=== PATIENT | male | born 1970 | race Caucasian/White ===

== ENCOUNTER 2021-01-26 02:58 | Emergency (ER) | payer SELFPAY ==
[2021-01-26 03:00] VITALS: BP 133/91; PULSE 93; RESP 18; TEMP 36.9; O2SAT 98; BMI 20.9
--- NOTE | 2021-01-26 03:44 | ED_ITS ---
HPI - Extremity Problem General Chief complaint: Extremity Problem,Nontraumatic Stated complaint: Right leg pain Time Seen by Provider: 01/26/21 03:10 Source: patient Mode of arrival: Ambulatory Limitations: no limitations History of Present Illness HPI Narrative: Patient is a 50-year-old male with recent IVDA use his and recent spinal abscess with probable CVA presenting today with increasing right leg weakness numbness and tingling. He says over last 2 days he has actually noticed some increasing weakness and feeling like his he has footdrop. He says that he had footdrop and his whole right side was paralyzed when he had the spinal abscess. He is unsure if he actually had a stroke. He has been doing we ll until a few days ago. He denies any injury to his back. He describes pain coming from his buttock down to his foot as sharp and shooting. He admits to using heroin today it helped a lot with the pain. He was previously in [place] where he was treated and has been in [place] for about the last 3 weeks. He denies any other history. MD Complaint: extremity pain Related Data Previous Rx's Medication Instructions Recorded sulfamethoxazole-trimethoprim 1 tab PO BID 7 Days #14 tab 01/26/21 [Bactrim DS] Allergies Allergy/AdvReac Type Severity Reaction Status Date / Time acetaminophen [From Tylenol] Allergy Verified 01/26/21 03:16 Review of Systems Review of Systems ROS Unobtainable: All systems reviewed & are unremarkable except as noted in HPI and below Constitutional Constitutional: Denies chills, Denies fever(s), Denies lethargy and Reports weakness ENT Ears, Nose, Mouth, and Throat: Denies vertigo and Denies dizziness Cardiovascular Cardiovascular: Denies chest pain, Denies irregular heart rhythm, Denies lightheadedness, Denies palpitations, Denies dyspnea, Denies dyspnea on exertion and Denies orthopnea Respiratory Respiratory: Denies cough, Denies dyspnea, Denies dyspnea on exertion and Denies wheezing Musculoskeletal Musculoskeletal: Reports as per HPI, Reports numbness and Reports tingling Integumentary/Breasts Skin/Breast: Denies pruritus, Denies erythema, Denies rash and Denies wounds Neurologic Neurologic: Denies confusion, Denies vertigo, Denies dizziness, Reports lack of coordination, Reports numbness, Reports tingling and Reports weakness Psychiatric Psychiatric: Denies confusion Endocrine Endocrine: Denies palpitations Allergic/Immunologic Allergic/Immunologic: Denies wheezing Patient History Social History Smoking Status: Current every day smoker Smoking Status: Current every day smoker tobacco type: cigarettes Substance Use Type: former substance user and marijuana Exam Initial Vital Signs Initial Vital Signs: Vital Signs Temperature 98.4 F 01/26/21 03:00 Pulse Rate 93 H 01/26/21 03:00 Respiratory Rate 18 01/26/21 03:00 Blood Pressure 133/91 H 01/26/21 03:00 Pulse Oximetry 98 01/26/21 03:00 GENERAL: Alert 50-year-old male does shovel and in no acute distress. HEENT: Head atraumatic,EOMI, pupils reactive, face symmetric, moist mucous membranes CARDIOVASCULAR: Regular rate and rhythm without murmurs, rubs or gallops. RESPIRATORY: Breath sounds equal bilaterally, no wheezes rales or rhonchi. ABDOMEN: Soft, nontender. Normoactive bowel sounds all 4 quadrants. No guarding or rebound. BACK: No vertebral tenderness or step-off some mild right lumbar pain EXTREMITIES: Normal range of motion, no clubbing or edema. Neurovascularly intact NEUROLOGICAL: Alert and oriented x4.Normal gait and speech. Cranial nerves II t hrough XII grossly intact. Good [id number], good [id number], strength equal bilaterally, no dysarthria or aphasia, sensation in tact to soft touch bilaterally, no visual changes, no facial droop SKIN: Patient is noted to have this on Rodriges posterior wrist area there is mild fluctuation no drainage another abscess on his right forearm with fluctuation. Course Orders Ordered: ED Orders 01/26/21 03:45 CT lumbar spine w con Stat CT thoracic spine w con Stat 01/26/21 03:47 Urinalysis and Microscopic Stat 01/26/21 03:48 CT head/brain wo con Stat 01/26/21 03:50 C-Reactive Protein Quant Stat Complete Blood Count AUTO DIFF Stat Comprehensive Metabolic Panel Stat Erythrocyte Sedimentation Rate Stat Procalcitonin Stat 01/26/21 04:05 Blood Culture Stat Discontinued Medications Ketorolac Tromethamine (Ketorolac 30 Mg/Ml Vial) 30 mg IV NOW ONE Stop: 01/26/21 05:37 Last Admin: 01/26/21 05:46 Dose: 30 mg Documented by: Vital Signs Vital signs: Vital Signs - 8 hr 01/26/21 03:00 Temperature 98.4 F Pulse Rate 93 H Respiratory Rate 18 Blood Pressure 133/91 H Pulse Oximetry 98 MDM - Extremity (Nontraumatic) Lab Data Result diagrams: 01/26/21 03:50 01/26/21 03:50 Labs: Lab Results 01/26/21 01/26/21 Range/Units 03:50 03:50 WBC 9.3 (4.5-11.0) X10^3/uL RBC 4.50 (4.5-5.9) X10^6/uL Hgb 13.1 L (13.5-17.5) g/dL Hct 38.5 L (41-53) % MCV 85.4 (80-100) fL MCH 29.2 (26-34) PG MCHC 34.2 (30-36) % RDW 15.1 H (11.6-14.8) % Plt Count 363 (150-400) X10^3/uL Neut % (Auto) 59.6 (50-75) % Lymph % (Auto) 22.8 L (25-40) % [place] % (Auto) 10.2 (3-14) % Eos % (Auto) 4.2 H (2-4) % Baso % (Auto) 3.2 H (0-2) % Neut # (Auto) 5600 (7782-9166) /uL Lymph # (Auto) 2100 (3535-3273) /uL [place] # (Auto) 1000 H (0-900) /uL Eos # (Auto) 400 (0-450) /uL Baso # (Auto) 300 H (0-100) /uL ESR 12 (0-15) MM/HR Sodium 136 L (137-145) mmol/L Potassium 4.0 (3.4-5.1) mmol/L Chloride 104 (98-107) mmol/L Carbon Dioxide 28 (22-32) mmol/L BUN 15 (9-20) mg/dL Creatinine 0.73 (0.66-1.25) mg/dL Estimated GFR > 60.0 (>60) mL/min BUN/Creatinine Ratio 20.5 (6-22) Glucose 120 H (70-100) mg/dL Calcium 9.5 (8.4-10.2) mg/dL Total Bilirubin 0.6 (0.2-1.3) mg/dL AST 55 (17-59) IU/L ALT 53 H (<50) IU/L Alkaline Phosphatase 96 (38-126) U/L C-Reactive Protein 0.9 (<1.0) mg/dL Total Protein 7.3 (6.3-8.2) g/dL Albumin 3.8 (3.5-5.0) g/dL Globulin 3.5 (1.7-4.1) g/dL Albumin/Globulin Ratio 1.1 (1.0-2.8) Procalcitonin 0.10 (<0.5) ng/mL Imaging Data CT scan - head: Radiologist's Impression: Preliminary report no acute intracranial pathology CT thoracic: Radiologist's Impression: Preliminary report negative for abscess. Mild spondylitic changes in the thoracic spine. CT lumbar: Radiologist's Impression: Negative for abscesses or suspicious bony lesion. Multilevel degenerative disease with facet arthropathy and thickened ligamentum flavum resulting in very will increase of spinal canal stenosis and foraminal stenosis most severe at L3 or L4-L5-L5-S1 MDM Narrative Medical decision making narrative: The patient overall appears well and is a febrile. Her records have finally been received reviewed from [facility] and the [facility] in [facility]. It is found that he has had cervical abscesses is March 2020 and presented with right leg weakness. He had no upper extremity pain or weakness. He initially w as admitted for MRI and further evaluation is however it was found that he had cervical abscesses and was placed on IV antibiotics. He also has a history of sciatic issues however because he has relapse on to IV drug he is concerned for recurrent abscesses. Unfortunately records were received after imaging was ordered he had is CTs of neck and lumbar today which do not reveal any abscess he has no leukocytosis or fever. At this time inflammatory markers such as ESR CRP prolactin are all negative. He has some mild decreased sensation on his right lower leg which according to records and him is not new. At this time I recommend patient to have outpatient follow-up. He is going to try to get into detox again. Patient is also found to have a subcutaneous abscesses. At this time recommend warm compresses and antibiotics. Discharge Plan Departure Patient Disposition: Home Clinical Impression: Abscess of skin Acute back pain with sciatica Qualifiers: Laterality: right Qualified Code(s): M54.41 - Lumbago with sciatica, right side Instructions: DI for Back Pain With Sciatica Activity Restrictions/Additional Instructions: *You have been diagnosed with back pain with sciatic, skin abscesses *What to do: At this time I believe your symptoms are due from sciatic and back pain and not from spinal abscesses. However please monitor symptoms closely and if they are worsening return to the emergency department. Warm compresses to your abscesses they may need to be drained. *Continue to take medications as directed Bactrim 1 tablet twice a day for 7 days *Follow up with your primary care provider in 2-3 days *Return to ER if you should have increasing weakness, fever, numbness tingling or any new, worsening or concerning symptoms Prescriptions: New sulfamethoxazole-trimethoprim [Bactrim DS] 800-160 mg tablet 1 tab PO BID 7 Days Qty: 14 RF: 0
--- NOTE | 2021-01-26 03:45 | DI.CT.S_ITS ---
PROCEDURE: CT LUMBAR SPINE W CON INDICATIONS: History of spinal abscess TECHNIQUE: After the administration of intravenous Isovue contrast, 3 mm thick sections acquired through the levels of interest. Sagittal and coronal reformats were then constructed. For radiation dose reduction, the following was used: automated exposure control. COMPARISON: None. FINDINGS: Image quality: Excellent. Bones: There is no acute fracture. There is transitional type anatomy with partial lumbarization of S1. There is a rudimentary disc space at S1-S2. There is minimal retrolisthesis of L1 on L2, L2 on L3, and L4 on L5. There is at least mild intervertebral disc space loss at L1-L2 and L3-L4. Vacuum disc phenomenon is noted L2-L3. There is diffuse endplate degenerative changes and mild facet arthropathy which is worse at the lumbosacral junction. Moderate intervertebral disc space loss is noted L2-L3, and L5-S1. L1-L2: There is mild disc bulging without significant spinal canal stenosis. Very mild lateral recess stenosis. L2-L3: Disc bulging and retrolisthesis results in very mild spinal canal stenosis and mild neural foraminal stenosis bilaterally. L3-L4: Disc bulging and likely superimposed left central disc protrusion results in severe left lateral recess stenosis. There is ligamentum flavum hypertrophy. There is moderate left and mild right neural foraminal stenosis. L4-L5: Shallow disc bulging and ligamentum flavum hypertrophy results and moderate to severe spinal canal stenosis. There is lateral recess stenosis. There is moderate bilateral neural foraminal stenosis. L5-S1: Broad-based disc bulge with likely superimposed central disc extrusion with caudal migration versus prominent epidural vein. There is also ligamentum flavum hypertrophy. This results in moderate spinal canal stenosis. There is bilateral lateral recess stenosis. At least moderate bilateral neural foraminal stenosis. Soft tissues: No suspicious abnormality within the adjacent soft tissues. The prevertebral spaces are without hematoma. There is scattered vascular calcifications within the aorta and branch vessels. IMPRESSION: No acute osseous abnormality. Multilevel degenerative lumbar spondylosis as above. There are multiple levels of spinal canal stenosis most prominent at L4-L5 where it is moderate to marked as well as varying degrees of neural foraminal stenosis which is worse L5-S1 where it is at least moderate. In addition there is multiple levels of lateral recess stenosis most prominent on the left at L3-L4 likely causing nerve impingement. Agree with preliminary report. Dictated by: Chai Lui D.O. on 01/26/2021 at 9:05 Approved by: Chai Lui D.O. on 01/26/2021 at 9:18
--- NOTE | 2021-01-26 03:45 | DI.CT.S_ITS ---
PROCEDURE: CT THORACIC SPINE W CON INDICATIONS: hx of spinal spinal abscess TECHNIQUE: After the administration of intravenous Isovue contrast, 3 mm thick sections acquired through the levels of interest. Sagittal and coronal reformats were then constructed. For radiation dose reduction, the following was used: automated exposure control. COMPARISON: None. FINDINGS: Image quality: Excellent. Bones: There is no acute fracture. Alignment is maintained. Vertebral body heights are maintained. Intervertebral disc spaces are maintained. There is mild endplate degenerative changes. There is no significant spinal canal or neural foraminal stenosis throughout the thoracic spine within limits of this exam. No suspicious osseous lesion. Moderate multilevel degenerative changes of the cervical spine with intervertebral disc space loss at C4-C5, C5-C6, and C6-C7 with endplate degenerative changes. No significant spinal canal stenosis. At least mild neural foraminal stenosis is noted bilaterally C5-C6 and C6-C7 and on the left at C4-C5. Soft tissues: No suspicious enhancement within the paravertebral soft tissues. Imaged lungs appear clear. Imaged portions of the upper abdomen demonstrate no acute osseous abnormality. There are coronary vascular calcifications. IMPRESSION: No acute osseous abnormality or suspicious enhancement. Mild degenerative changes of the thoracic spine without significant spinal canal or neural foraminal stenosis. Degenerative changes of the lower cervical spine without significant spinal canal stenosis. Mild neural foraminal stenosis at multiple levels as above. Agree with preliminary report. Dictated by: Chai Lui D.O. on 01/26/2021 at 9:18 Approved by: Chai Lui D.O. on 01/26/2021 at 9:24
--- NOTE | 2021-01-26 03:48 | DI.CT.S_ITS ---
PROCEDURE: CT HEAD/BRAIN WO CON INDICATIONS: right leg weakness prior cva TECHNIQUE: Noncontrast 4.5 mm thick angled axial sections acquired from the foramen magnum to the vertex, with coronal and sagittal reformats. For radiation dose reduction, the following was used: automated exposure control, adjustment of mA and/or kV according to patient size. COMPARISON: None. FINDINGS: Image quality: Excellent. CSF spaces: Basal cisterns are patent. No extra-axial fluid collections. Ventricles are normal in size and shape. Brain: No midline shift. No intracranial masses or hemorrhage. Rosas-white matter interface is normal. Skull and face: Calvarium and visualized facial bones are intact, without suspicious lesions. Sinuses: Visualized sinuses and mastoids are clear. IMPRESSION: No evidence of an acute intracranial abnormality. Agree with preliminary report. Dictated by: Chai uLi D.O. on 01/26/2021 at 9:02 Approved by: Chai Lui D.O. on 01/26/2021 at 9:04
[2021-01-26 04:00] LABS: Add Manual Diff / Slide Review NO; Basophils Absolute Auto 300 /uL (0-100); Basophils Percent Auto 3.2 % (0-2); Eosinophils Absolute Auto 400 /uL (0-450); Eosinophils Percent Auto 4.2 % (2-4); Hematocrit 38.5 % (41-53); Hemoglobin 13.1 g/dL (13.5-17.5); Lymphocytes Absolute Auto 2100 /uL (1100-4500); Lymphocytes Percent Auto 22.8 % (25-40); Mean Corpuscular HGB Conc 34.2 % (30-36); Mean Corpuscular Hemoglobin 29.2 PG (26-34); Mean Corpuscular Volume 85.4 fL (80-100); Monocytes Absolute Auto 1000 /uL (0-900); Monocytes Percent Auto 10.2 % (3-14); Neutrophils Absolute Auto 5600 /uL (1500-7000); Neutrophils Percent Auto 59.6 % (50-75); Platelet Count 363 X10^3/uL (150-400); Red Cell Distribution Width 15.1 % (11.6-14.8); White Blood Cell Count 9.3 X10^3/uL (4.5-11.0)
[2021-01-26 04:12] LABS: Alanine Aminotransferase 53 IU/L (<50); Albumin 3.8 g/dL (3.5-5.0); Albumin Globulin Ratio 1.1 (1.0-2.8); Alkaline Phosphatase 96 U/L (38-126); Aspartate Aminotransferase 55 IU/L (17-59); BUN Creatinine Ratio 20.5 (6-22); Bilirubin Total 0.6 mg/dL (0.2-1.3); Blood Urea Nitrogen 15 mg/dL (9-20); C-Reactive Protein Quant 0.9 mg/dL (<1.0); Calcium 9.5 mg/dL (8.4-10.2); Carbon Dioxide 28 mmol/L (22-32); Chloride 104 mmol/L (98-107); Estimated Glomerular Filt Rate > 60.0 mL/min (>60); Globulin 3.5 g/dL (1.7-4.1); Glucose 120 mg/dL (70-100); HEMOLYSIS 36 (0-50); Sodium 136 mmol/L (137-145); Total Protein 7.3 g/dL (6.3-8.2)
[2021-01-26 04:24] LABS: Erythrocyte Sedimentation Rate 12 MM/HR (0-15)
[2021-01-26] MEDS: KETOROLAC 30 MG/ML VIAL IV (05:46)
[2021-01-26 06:23] VITALS: BP 121/79; PULSE 87; RESP 15; O2SAT 97
== END 2021-01-26 06:24 | disposition home or self-care (01) ==
PROVIDERS: Emergency Provider Emergency Medicine
DX: M54.41 Lumbago with sciatica, right side (principal); L02.413 Cutaneous abscess of right upper limb; Z86.73 Personal history of transient ischemic attack (TIA), and cerebral infarction without residual deficits
CPT/HCPCS: 36415; 70450; 72129; 72132; 80053; 84145; 85025; 85651; 86140; 87040; 96374; 99284; 99285; J1885; Q9967

== ENCOUNTER 2021-02-04 20:30 | Emergency (ER) | payer SELFPAY ==
[2021-02-04 20:33] VITALS: BP 130/78; PULSE 95; RESP 16; TEMP 36.9; O2SAT 99
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
[2021-02-05] MEDS: CLINDAMYCIN 150 MG CAPSULE 300 MG PO (01:44)
[2021-02-05] MEDS: TRIMETH/SULFA 160/800 (DS) TABLET 1 TAB PO (01:44)
[2021-02-05 02:05] VITALS: BP 135/80; PULSE 84; RESP 18; O2SAT 99
--- NOTE | 2021-02-05 03:53 | PC.NURSE ---
DR Muñoz saw and treated and dressed his abscess before I was able to assess it also.
== END 2021-02-05 02:05 | disposition home or self-care (01) ==
PROVIDERS: Emergency Provider Emergency Medicine
DX: L02.413 Cutaneous abscess of right upper limb (principal)
CPT/HCPCS: 10060; 99283

== ENCOUNTER 2021-02-09 17:20 | Emergency (ER) | payer SELFPAY ==
[2021-02-09 17:26] VITALS: BP 162/100; PULSE 89; RESP 18; TEMP 35.3; O2SAT 100
[2021-02-09] MEDS: DOXYCYCLINE HYCLATE 100 MG TABLET PO (17:35)
--- NOTE | 2021-02-09 17:35 | ED.SKABFB ---
HPI - Skin/Abscess/Foreign Bdy General Chief complaint: Skin/Abscess/Foreign Body Stated complaint: Needs Abcess Cleaned Out, Right Arm Time Seen by Provider: 02/09/21 17:20 Source: patient Mode of arrival: Ambulatory Limitations: no limitations History of Present Illness HPI narrative: 50-year-old male daily smoker (2 packs) returns for re-evaluation of spontaneously draining abscess on his right forearm. His symptoms started after his 1st ever attempt at intramuscular injection of heroin. He developed abscess and he started getting some pus out of it and came to here in the emergency department few days ago. He was placed on antibiotics and was unable to get them filled because he lost them. He states it actually looks better than it did, has less surrounding redness. He denies any red streaks or significant ongoing drainage. He denies any systemic findings such fever, chills nor nausea or vomiting. MD complaint: other Onset (ago): day(s) Tetanus up to date: yes Location: RUE Severity: moderate Quality: aching Pain Consistency: constant Relieving factors: none Exacerbating factors: movement Context: IVDA Associated symptoms: denies other symptoms Treatments prior to arrival: bandages Related Data Previous Rx's Medication Instructions Recorded clindamycin HCl 300 mg PO TID #21 cap 02/05/21 sulfamethoxazole-trimethoprim 1 tab PO BID #14 tab 02/05/21 [Bactrim DS] doxycycline hyclate 100 mg PO BID #20 tab 02/09/21 Allergies Allergy/AdvReac Type Severity Reaction Status Date / Time acetaminophen [From Tylenol] Allergy Verified 01/26/21 03:16 Review of Systems Constitutional Constitutional: Denies chills, Denies fatigue, Denies fever(s), Denies frequent falls, Denies lethargy and Denies weakness Eyes Eyes: Denies change in vision, Denies eye discharge, Denies irritation and Denies loss of vision ENT Ears, Nose, Mouth, and Throat: Denies change in voice, Denies dizziness, Denies neck pain, Denies sore throat and Denies throat swelling Cardiovascular Cardiovascular: Denies chest pain, Denies irregular heart rhythm, Denies lightheadedness, Denies palpitations, Denies dyspnea, Denies dyspnea on exertion and Denies orthopnea Respiratory Respiratory: Denies cough, Denies dyspnea, Denies dyspnea on exertion and Denies wheezing Gastrointestinal Gastrointestinal: Denies abdominal pain, Denies change in bowel habits, Denies diarrhea, Denies nausea and Denies vomiting Musculoskeletal Musculoskeletal: Denies neck pain and Denies numbness Integumentary/Breasts Skin/Breast: Denies pruritus, Reports erythema, Denies rash, Reports skin swelling, Reports skin ulcer and Reports wounds Neurologic Neurologic: Denies behavioral changes, Denies confusion, Denies dizziness, Denies frequent falls, Denies loss of vision, Denies numbness and Denies weakness Psychiatric Psychiatric: Denies anxiety, Denies behavioral changes, Denies confusion, Denies depression, Denies homicidal ideation and Denies suicidal ideation Endocrine Endocrine: Denies fatigue, Denies flushing and Denies palpitations Hematologic/Lymphatic Hematologic/Lymphatic: Denies easy bruising Allergic/Immunologic Allergic/Immunologic: Denies urticaria, Denies throat swelling and Denies wheezing Patient History Medical History Abscess of skin Social History Smoking Status: Current every day smoker Smoking Status: Current every day smoker tobacco type: cigarettes Substance Use Type: former substance user and marijuana Exam Narrative Exam Narrative: GEN: AOx3 and in mild distress EYES: Pupils are equal, round, and reactive to light and accommodation. Extraoccular muscles are intact bilaterally. There is no subconjunctival hemorrhage or exudate. CHEST: Lungs are clear to auscultation bilaterally and free of wheezes, rales, or rhonchi. Heart rate is regular rhythm, there are no murmurs, clicks, rubs, or gallops. There is no chest wall tenderness. ABD: Abdomen is soft and nontender. There is no guarding or rebound. Bowel sounds are normal in all 4 quadrants. There is no mass or organomegaly. EXT: Full painless ROM of all extremities with no loss of sensation or strength. SKIN: 2x3cm area of erythema, mild induration, central necrosis no red streaks. Warm, pink, and dry. No erythema or rash Initial Vital Signs Initial Vital Signs: Vital Signs Temperature 95.5 F L 02/09/21 17:26 Pulse Rate 89 02/09/21 17: Respiratory Rate 18 02/09/21 17:26 Blood Pressure 162/100 H 02/09/21 17:26 Pulse Oximetry 100 02/09/21 17:26 Course Orders Ordered: Discontinued Medications Doxycycline Hyclate (Doxycycline Hyclate 100 Mg Tablet) 100 mg PO NOW ONE Stop: 02/09/21 17:32 Vital Signs Vital signs: Vital Signs - 8 hr 02/09/21 17:26 Temperature 95.5 F L Pulse Rate 89 Respiratory Rate 18 Blood Pressure 162/100 H Pulse Oximetry 100 Discharge Plan Departure Patient Disposition: Home Clinical Impression: Abscess of skin Qualifiers: Site of cutaneous abscess: extremity Site of cutaneous abscess of extremity: upper extremity Laterality: right Qualified Code(s): L02.413 - Cutaneous abscess of right upper limb Instructions: DI for Skin Abscess Activity Restrictions/Additional Instructions: *You have been diagnosed with [healing abscess right forearm, with minimal surrounding cellulitis ] *What to do: *Please continue to take your regular medications as directed. [X] New medication prescriptions sent to your pharmacy: [[facility]] [ ] New medication written as a paper prescription [ ] No new medications given *Please follow up with your primary care provider in 2-3 days, call for an appointment. Let them know you were seen in the Emergency Department and that we ask that you be seen in follow up. We will electronically transmit a record of today's note if your PCP is in our system *If you do not have a primary care provider please contact [facility] Resource line at [phone]. They will ask some questions about your medical history and help get you set up with a doctor in the community. *Return to Emergency Department if you should have any new, worsening or concerning symptoms, such as [fever greater than 101 F, shaking chills, worsening pain, persistent vomiting or other bothersome symptoms] Prescriptions: New doxycycline hyclate 100 mg tablet 100 mg PO BID Qty: 20 RF: 0 No Action sulfamethoxazole-trimethoprim [Bactrim DS] 800-160 mg tablet 1 tab PO BID Qty: 14 RF: 0 clindamycin HCl 300 mg capsule 300 mg PO TID Qty: 21 RF: 0 Referrals: [facility] [Outside]
--- NOTE | 2021-02-09 17:39 | PC.NURSE ---
abcess non fluctuate no streakign noted. Patient reports it was significantly larger but drained couple days ago. Reports IV drug use.
== END 2021-02-09 17:42 | disposition home or self-care (01) ==
PROVIDERS: Emergency Provider Emergency Medicine
DX: L02.413 Cutaneous abscess of right upper limb (principal)
CPT/HCPCS: 99283

== ENCOUNTER 2021-02-12 19:53 | Emergency (ER) | payer SELFPAY ==
[2021-02-12 20:00] VITALS: BP 109/74; PULSE 100; RESP 18; TEMP 36.7; O2SAT 97; BMI 36.1
--- NOTE | 2021-02-12 21:36 | DI.RAD.S_ITS ---
PROCEDURE: XR CHEST 1V INDICATIONS: suspected sepsis TECHNIQUE: One view of the chest was acquired. COMPARISON: None. FINDINGS: Surgical changes and devices: None. Lungs and pleura: No pleural effusions or pneumothorax. Streaky retrocardiac left lower lobe opacities. Mediastinum: Mediastinal contours appear normal. Heart size is normal. Bones and chest wall: No suspicious bony lesions. Overlying soft tissues appear unremarkable. IMPRESSION: Streaky opacities in the retrocardiac left lung base possibly low-grade aspiration atelectasis versus early pneumonia. If there is persistent clinical diagnostic uncertainty, continued surveillance with short interval radiographic followup after treatment is recommended. Dictated by: Denis Sultana M.D. on 02/12/2021 at 22:09 Approved by: Denis Sultana M.D. on 02/12/2021 at 22:10
[2021-02-12 21:44] LABS: Add Manual Diff / Slide Review NO; Basophils Absolute Auto 100 /uL (0-100); Basophils Percent Auto 1.6 % (0-2); Eosinophils Absolute Auto 400 /uL (0-450); Eosinophils Percent Auto 5.1 % (2-4); Hematocrit 39.3 % (41-53); Hemoglobin 13.5 g/dL (13.5-17.5); Lymphocytes Absolute Auto 2300 /uL (1100-4500); Lymphocytes Percent Auto 27.6 % (25-40); Mean Corpuscular HGB Conc 34.4 % (30-36); Mean Corpuscular Hemoglobin 29.6 PG (26-34); Mean Corpuscular Volume 86.2 fL (80-100); Monocytes Absolute Auto 900 /uL (0-900); Monocytes Percent Auto 11.3 % (3-14); Neutrophils Absolute Auto 4500 /uL (1500-7000); Neutrophils Percent Auto 54.4 % (50-75); Platelet Count 294 X10^3/uL (150-400); Red Blood Cell Count 4.56 X10^6/uL (4.5-5.9); Red Cell Distribution Width 14.9 % (11.6-14.8); White Blood Cell Count 8.2 X10^3/uL (4.5-11.0)
[2021-02-12 21:47] LABS: INR 1.1 (0.9-1.3); Prothrombin Time 12.4 SECONDS (10.1-12.7)
[2021-02-12 21:50] LABS: PTT Partial Thromboplastin Tim 31 SECONDS (26.4-36.2)
[2021-02-12 21:51] LABS: Lactate (Lactic Acid) 1.4 mmol/L (0.7-2.1)
[2021-02-12 21:52] LABS: Alanine Aminotransferase 33 IU/L (<50); Albumin Globulin Ratio 1.2 (1.0-2.8); Alkaline Phosphatase 87 U/L (38-126); Aspartate Aminotransferase 29 IU/L (17-59); Bilirubin Total 0.6 mg/dL (0.2-1.3); Blood Urea Nitrogen 20 mg/dL (9-20); Calcium 9.7 mg/dL (8.4-10.2); Carbon Dioxide 30 mmol/L (22-32); Chloride 103 mmol/L (98-107); Estimated Glomerular Filt Rate > 60.0 mL/min (>60); Globulin 3.3 g/dL (1.7-4.1); Glucose 202 mg/dL (70-100); HEMOLYSIS < 15 (0-50); Lipase 25 U/L (23-300); Potassium 3.9 mmol/L (3.4-5.1); Sodium 141 mmol/L (137-145); Total Protein 7.3 g/dL (6.3-8.2)
[2021-02-12 22:06] LABS: COVID19 -Nasal RAPID Negative (Negative)
[2021-02-12] MEDS: SODIUM CHLORIDE 0.9% 1,000 ML 1000 ML IV (22:06)
[2021-02-12 22:09] LABS: Procalcitonin 0.07 ng/mL (<0.5)
[2021-02-12 23:18] VITALS: BP 111/66; PULSE 99; O2SAT 95
[2021-02-12] MEDS: TRIMETH/SULFA 160/800 PREPACK 1 BOTTLE MISC (23:18)
--- NOTE | 2021-02-12 23:18 | PC.NURSE ---
Pt reports wound is from IV drug use. I just need antibiotics Just moved up from [place].
--- NOTE | 2021-02-13 04:51 | ED.RECABL ---
HPI - Recheck/Abnormal Lab/Rx General Chief Complaint: Recheck/Abnormal Lab/Rx Stated Complaint: wound check, needs antibiotics Time Seen by Provider: 02/12/21 21:20 Source: patient Mode of arrival: Ambulatory Limitations: no limitations History of Present Illness HPI narrative: 50-year-old gentleman with a history of IV drug use who presents stating he needs help with antibiotics as the prescription currently waiting for him at [facility] costs 80 dollars in the wound on her his [employer] insurance. Was initially seen on the with an I and D of an abscess on the right forearm and started on Septra and clindamycin it is unclear whether he actually picked those medications up. Was seen again on the and prescribed doxycycline and was not able to pick this medication up. Wound today is actually significantly improved with minimal evidence of cellulitis however he does have multiple other areas of minor abscesses secondary to his IV drug use. He reports no significant fevers, cough, chest pain, palpitations he has no signs or symptoms of sepsis at this time. Related Data Previous Rx's Medication Instructions Recorded clindamycin HCl 300 mg PO TID #21 cap 02/05/21 sulfamethoxazole-trimethoprim 1 tab PO BID #14 tab 02/05/21 [Bactrim DS] doxycycline hyclate 100 mg PO BID #20 tab 02/09/21 Allergies Allergy/AdvReac Type Severity Reaction Status Date / Time acetaminophen [From Tylenol] Allergy Verified 01/26/21 03:16 Review of Systems Review of Systems Narrative: Remainder of complete review of systems is otherwise unremarkable except for that included in the HPI. Patient History Medical History Abscess of skin Social History Smoking Status: Current every day smoker Smoking Status: Current every day smoker tobacco type: cigarettes Substance Use Type: marijuana and heroin Exam Narrative Exam Narrative: General: Alert appropriate in no acute distress Respiratory: Able to speak in full sentences, no obvious respiratory distress Skin: No obvious rashes, warm and dry Neurologic: Grossly intact no obvious asymmetries or abnormalities, pinpoint pupils with injected sclera suggesting continued heroin use Psych: appropriate insight and affect, cooperative Extremity: Right upper extremity with healing I and D site on the forearm. No significant drainage with minor erythema only around the wound. Initial Vital Signs Initial Vital Signs: Vital Signs Temperature 98.1 F 02/12/21 20:00 Pulse Rate 100 H 02/12/21 20:00 Respiratory Rate 18 02/12/21 20:00 Blood Pressure 109/74 02/12/21 20:00 Pulse Oximetry 97 02/12/21 20:00 Course Orders Ordered: ED Orders 02/12/21 21:25 Complete Blood Count AUTO DIFF Stat Comprehensive Metabolic Panel Stat Lactate (Lactic Acid) Stat Lipase Stat Partial Thromboplastin Time Stat Procalcitonin Stat Prothrombin Time INR Stat 02/12/21 21:30 COVID19 -Nasal swab/Pre-Proc Stat 02/12/21 21:36 XR chest 1V Stat 02/12/21 21:42 Blood Culture Stat Discontinued Medications Sodium Chloride (Normal Saline 0.9%) 1,000 mls @ 1,000 mls/hr IV BOLUS ONE Stop: 02/12/21 22:35 Last Infusion: 02/12/21 23:17 Dose: 0 mls/hr Documented by: Admin: 02/12/21 22:06 Dose: 1,000 mls/hr Documented by: XU Trimethoprim/Sulfamethoxazole (Trimeth/Sulfa 160/800 Prepack) 1 bottle MISC SEEINSTR ONE Stop: 02/12/21 23:08 Last Admin: 02/12/21 23:18 Dose: 1 bottle Documented by: RENETTA Vital Signs Vital signs: Vital Signs - 8 hr 02/12/21 23:18 Pulse Rate 99 H Blood Pressure 111/66 Pulse Oximetry 95 MDM - Recheck/Abnormal Lab/Rx Medical Records Attestation: I reviewed the patient's medical records. Lab Data Attestation: I reviewed the patient's lab results. Result diagrams: 02/12/21 21:25 02/12/21 21:25 Labs: Lab Results 02/12/21 02/12/21 02/12/21 Range/Units 21:25 21:25 21:25 WBC 8.2 (4.5-11.0) X10^3/uL RBC 4.56 (4.5-5.9) X10^6/uL Hgb 13.5 (13.5-17.5) g/dL Hct 39.3 L (41-53) % MCV 86.2 (80-100) fL MCH 29.6 (26-34) PG MCHC 34.4 (30-36) % RDW 14.9 H (11.6-14.8) % Plt Count 294 (150-400) X10^3/uL Neut % (Auto) 54.4 (50-75) % Lymph % (Auto) 27.6 (25-40) % [place] % (Auto) 11.3 (3-14) % Eos % (Auto) 5.1 H (2-4) % Baso % (Auto) 1.6 (0-2) % Neut # (Auto) 4500 (5908-3347) /uL Lymph # (Auto) 2300 (9572-3887) /uL [place] # (Auto) 900 (0-900) /uL Eos # (Auto) 400 (0-450) /uL Baso # (Auto) 100 (0-100) /uL PT 12.4 (10.1-12.7) SECONDS INR 1.1 (0.9-1.3) APTT 31 (26.4-36.2) SECONDS Sodium 141 (137-145) mmol/L Potassium 3.9 (3.4-5.1) mmol/L Chloride 103 (98-107) mmol/L Carbon Dioxide 30 (22-32) mmol/L BUN 20 (9-20) mg/dL Creatinine 0.80 (0.66-1.25) mg/dL Estimated GFR > 60.0 (>60) mL/min BUN/Creatinine Ratio 25.0 H (6-22) Glucose 202 H (70-100) mg/dL Lactate (0.7-2.1) mmol/L Calcium 9.7 (8.4-10.2) mg/dL Total Bilirubin 0.6 (0.2-1.3) mg/dL AST 29 (17-59) IU/L ALT 33 (<50) IU/L Alkaline Phosphatase 87 (38-126) U/L Total Protein 7.3 (6.3-8.2) g/dL Albumin 4.0 (3.5-5.0) g/dL Globulin 3.3 (1.7-4.1) g/dL Albumin/Globulin Ratio 1.2 (1.0-2.8) Lipase 25 (23-300) U/L Procalcitonin 0.07 (<0.5) ng/mL SARS-CoV-2 (PCR) (Negative) 02/12/21 02/12/21 Range/Units 21:25 21:30 WBC (4.5-11.0) X10^3/uL RBC (4.5-5.9) X10^6/uL Hgb (13.5-17.5) g/dL Hct (41-53) % MCV (80-100) fL MCH (26-34) PG MCHC (30-36) % RDW (11.6-14.8) % Plt Count (150-400) X10^3/uL Neut % (Auto) (50-75) % Lymph % (Auto) (25-40) % [place] % (Auto) (3-14) % Eos % (Auto) (2-4) % Baso % (Auto) (0-2) % Neut # (Auto) (3144-3134) /uL Lymph # (Auto) (6617-1210) /uL [place] # (Auto) (0-900) /uL Eos # (Auto) (0-450) /uL Baso # (Auto) (0-100) /uL PT (10.1-12.7) SECONDS INR (0.9-1.3) APTT (26.4-36.2) SECONDS Sodium (137-145) mmol/L Potassium (3.4-5.1) mmol/L Chloride (98-107) mmol/L Carbon Dioxide (22-32) mmol/L BUN (9-20) mg/dL Creatinine (0.66-1.25) mg/dL Estimated GFR (>60) mL/min BUN/Creatinine Ratio (6-22) Glucose (70-100) mg/dL Lactate 1.4 (0.7-2.1) mmol/L Calcium (8.4-10.2) mg/dL Total Bilirubin (0.2-1.3) mg/dL AST (17-59) IU/L ALT (<50) IU/L Alkaline Phosphatase (38-126) U/L Total Protein (6.3-8.2) g/dL Albumin (3.5-5.0) g/dL Globulin (1.7-4.1) g/dL Albumin/Globulin Ratio (1.0-2.8) Lipase (23-300) U/L Procalcitonin (<0.5) ng/mL SARS-CoV-2 (PCR) Negative (Negative) MDM Narrative Medical decision making narrative: 50-year-old gentleman with opiate use disorder with right forearm abscess that was drained on the . He did have surrounding cellulitis that time and was prescribed antibiotics it is unclear if he has feel them. Second request for antibiotics on the and clearly not able to fill them. At this point he is given a take-home pack it of Septra. Will encourage him to finish this and return if he has any new or worsening symptoms. We again reviewed the IV drug use in recommended considering follow-up with addiction medicine clinic. Safe for home discharge Discharge Plan Departure Patient Disposition: Home Clinical Impression: Abscess of skin or subcutaneous tissue Qualifiers: Site of cutaneous abscess: extremity Site of cutaneous abscess of extremity: upper extremity Laterality: right Qualified Code(s): L02.413 - Cutaneous abscess of right upper limb Instructions: DI for Skin Abscess Activity Restrictions/Additional Instructions: Your wound itself actually looks like it is healing fairly well. I am sorry you are not able to fill any of her antibiotics. I have given you Bactrim to take morning and evening until the prescription is completed. I hope you heal quickly Prescriptions: No Action sulfamethoxazole-trimethoprim [Bactrim DS] 800-160 mg tablet 1 tab PO BID Qty: 14 RF: 0 clindamycin HCl 300 mg capsule 300 mg PO TID Qty: 21 RF: 0 doxycycline hyclate 100 mg tablet 100 mg PO BID Qty: 20 RF: 0
== END 2021-02-12 23:19 | disposition home or self-care (01) ==
PROVIDERS: Emergency Provider Emergency Medicine
DX: L02.413 Cutaneous abscess of right upper limb (principal); Z20.822 Contact with and (suspected) exposure to COVID-19
CPT/HCPCS: 36415; 71045; 80053; 83605; 83690; 84145; 85025; 85610; 85730; 87040; 87635; 96360; 99284; C9803

== ENCOUNTER 2021-03-08 17:39 | Emergency (ER) | payer SELFPAY ==
[2021-03-08] VITALS (8 sets, daily range): BP systolic 105–131; BP diastolic 63–88; PULSE 73–88; RESP 14; TEMP 36.4; O2SAT 98–100; BMI 25.1
[2021-03-08 18:24] LABS: Add Manual Diff / Slide Review NO; Basophils Absolute Auto 100 /uL (0-100); Basophils Percent Auto 1.1 % (0-2); Eosinophils Absolute Auto 200 /uL (0-450); Eosinophils Percent Auto 3.1 % (2-4); Hematocrit 40.1 % (41-53); Hemoglobin 13.4 g/dL (13.5-17.5); Lymphocytes Absolute Auto 1000 /uL (1100-4500); Lymphocytes Percent Auto 13.5 % (25-40); Mean Corpuscular HGB Conc 33.4 % (30-36); Mean Corpuscular Hemoglobin 29.4 PG (26-34); Mean Corpuscular Volume 87.9 fL (80-100); Monocytes Absolute Auto 600 /uL (0-900); Monocytes Percent Auto 8.7 % (3-14); Neutrophils Absolute Auto 5400 /uL (1500-7000); Neutrophils Percent Auto 73.6 % (50-75); Platelet Count 257 X10^3/uL (150-400); Red Blood Cell Count 4.57 X10^6/uL (4.5-5.9); Red Cell Distribution Width 14.2 % (11.6-14.8); White Blood Cell Count 7.3 X10^3/uL (4.5-11.0)
[2021-03-08 18:38] LABS: BUN Creatinine Ratio 18.8 (6-22); Blood Urea Nitrogen 13 mg/dL (9-20); Calcium 9.5 mg/dL (8.4-10.2); Carbon Dioxide 30 mmol/L (22-32); Chloride 101 mmol/L (98-107); Estimated Glomerular Filt Rate > 60.0 mL/min (>60); Glucose 168 mg/dL (70-100); HEMOLYSIS < 15 (0-50); Sodium 137 mmol/L (137-145)
[2021-03-08] MEDS: ONDANSETRON 4 MG ODT SL (18:56)
--- NOTE | 2021-03-08 19:06 | ED_ITS ---
HPI - General Adult General Chief complaint: Dizziness Stated complaint: DIZZINESS/DISORIENTATION Time Seen by Provider: 03/08/21 18:00 Source: patient Mode of arrival: Ambulatory Limitations: no limitations History of Present Illness HPI narrative: Patient is a 50-year-old male here for evaluation of dizziness and disorientation and forgetting things. He also states that he is somewhat nauseated. He thought he was potentially feeling like this last evening before he went to bed but it was really this morning when he woke up on the symptoms became worse and has persisted throughout the day. He does admit to injecting heroin this morning. His symptoms have been consistent throughout the day. He is afebrile. He came into the emergency department for evaluation of these above symptoms. Related Data Previous Rx's Medication Instructions Recorded clindamycin HCl 300 mg PO TID #21 cap 02/05/21 sulfamethoxazole-trimethoprim 1 tab PO BID #14 tab 02/05/21 [Bactrim DS] doxycycline hyclate 100 mg PO BID #20 tab 02/09/21 Allergies Allergy/AdvReac Type Severity Reaction Status Date / Time acetaminophen [From Tylenol] Allergy Verified 03/08/21 17:46 Review of Systems Constitutional Constitutional: Reports chills, Reports fatigue, Denies headache(s) and Reports lethargy Eyes Eyes: Denies change in vision ENT Ears, Nose, Mouth, and Throat: Reports dizziness, Denies headache(s) and Denies disequilibrium Cardiovascular Cardiovascular: Reports system reviewed and no additional complaints, except as documented Respiratory Respiratory: Reports system reviewed and no additional complaints, except as documented Gastrointestinal Gastrointestinal: Reports system reviewed and no additional complaints, except as documented Genitourinary Genitourinary: Reports system reviewed and no additional complaints, except as documented Integumentary/Breasts Skin/Breast: Reports system reviewed and no additional complaints, except as documented Neurologic Neurologic: Denies abnormal speech, Reports confusion, Reports dizziness, Denies headache(s) and Denies disequilibrium Psychiatric Psychiatric: Reports confusion Endocrine Endocrine: Reports fatigue Hematologic/Lymphatic On Anticoagulants: No Allergic/Immunologic Allergic/Immunologic: Reports system reviewed and no additional complaints, except as documented Patient History Medical History Abscess of skin Social History Smoking Status: Current every day smoker Smoking Status: Current every day smoker tobacco type: cigarettes alcohol intake frequency: holidays/special occasions only Substance Use Type: marijuana and heroin Exam Initial Vital Signs Initial Vital Signs: Vital Signs Temperature 97.6 F 03/08/21 17:40 Pulse Rate 81 03/08/21 17:40 Respiratory Rate 14 03/08/21 17:40 Blood Pressure 131/88 03/08/21 17:40 Pulse Oximetry 99 03/08/21 17:40 Const General: cooperative and comfortable Limitations: mental status not altered HENMT Head: normal to inspection and normocephalic Resp Effort & Inspection: normal respiratory effort Auscultation: clear to auscultation bilaterally Cardio Rate: regular rate Rhythm: regular rhythm GI Inspection: non-distended Palpation: soft Skin Lesions: no lesions Rashes: no rashes Neuro General: patient alert, patient awake and patient oriented x3 Cognition: normal cognition Speech: speech normal Extrem General: normal to inspection and capillary refill normal Psych Appearance: grossly normal and well kempt Scores GCS Bladimir coma scale eye opening: Spontaneous Bladimir coma scale verbal response: Orientated Bladimir coma scale motor response: Obey commands Bladimir coma scale total score: 15 Course Orders Ordered: ED Orders 03/08/21 18:15 Basic Metabolic Panel Stat Complete Blood Count AUTO DIFF Stat Discontinued Medications Ibuprofen (Ibuprofen 400 Mg Tablet) 800 mg PO NOW ONE Stop: 03/08/21 19:07 Last Admin: 03/08/21 19:12 Dose: 800 mg Documented by: XU Ondansetron HCl (Ondansetron 4 Mg Odt) 4 mg SL NOW ONE Stop: 03/08/21 18:54 Last Admin: 03/08/21 18:56 Dose: 4 mg Documented by: XU Ondansetron HCl (Ondansetron 4 Mg Odt Prepack) 1 bottle MISC SEEINSTR ONE Stop: 03/08/21 19:07 Last Admin: 03/08/21 19:12 Dose: 1 bottle Documented by: XU Vital Signs Vital signs: Vital Signs - 8 hr 03/08/21 18:30 03/08/21 19:00 03/08/21 19:14 Pulse Rate 73 81 85 Blood Pressure 106/66 Pulse Oximetry 100 99 99 03/08/21 19:40 03/08/21 19:41 Pulse Rate 82 88 Blood Pressure 105/63 Pulse Oximetry 100 98 Medical Decision Making Lab Data Lab results reviewed: Yes I reviewed the patient's lab results. Result diagrams: 03/08/21 18:15 03/08/21 18:15 Labs: Lab Results 03/08/21 03/08/21 Range/Units 18:15 18:15 WBC 7.3 (4.5-11.0) X10^3/uL RBC 4.57 (4.5-5.9) X10^6/uL Hgb 13.4 L (13.5-17.5) g/dL Hct 40.1 L (41-53) % MCV 87.9 (80-100) fL MCH 29.4 (26-34) PG MCHC 33.4 (30-36) % RDW 14.2 (11.6-14.8) % Plt Count 257 (150-400) X10^3/uL Neut % (Auto) 73.6 (50-75) % Lymph % (Auto) 13.5 L (25-40) % [place] % (Auto) 8.7 (3-14) % Eos % (Auto) 3.1 (2-4) % Baso % (Auto) 1.1 (0-2) % Neut # (Auto) 5400 (0395-5818) /uL Lymph # (Auto) 1000 L (6498-7370) /uL [place] # (Auto) 600 (0-900) /uL Eos # (Auto) 200 (0-450) /uL Baso # (Auto) 100 (0-100) /uL Sodium 137 (137-145) mmol/L Potassium 4.0 (3.4-5.1) mmol/L Chloride 101 (98-107) mmol/L Carbon Dioxide 30 (22-32) mmol/L BUN 13 (9-20) mg/dL Creatinine 0.69 (0.66-1.25) mg/dL Estimated GFR > 60.0 (>60) mL/min BUN/Creatinine Ratio 18.8 (6-22) Glucose 168 H (70-100) mg/dL Calcium 9.5 (8.4-10.2) mg/dL ECG Data Attestation: I personally reviewed and interpreted this ECG as follows: Prior ECG tracings: not available for review Interpretation: Sinus rhythm Ventricular rate 85 Normal axis Normal QRS Normal QTC Nonspecific ST T wave changes MDM Narrative Medical decision making narrative: Patient is alert oriented x3. Has a GCS of 15. His labs are unremarkable. EKG is unremarkable. I have low suspicion for CVA. Low suspicion for TIA. I suspect his symptoms are related to his admitted IV drug use. I feel the patient could be discharged home without further workup here in the emergency department. He was given return precautions. He expressed understanding and agreement. Discharge Plan Departure Patient Disposition: Home Clinical Impression: Dizziness Instructions: DI for Dizziness-Nonvertigo Activity Restrictions/Additional Instructions: Your labs today are reassuring. You can take ibuprofen for any headaches. Recommend that you contact the health human resource internship here at the hospital at [phone]. This individual can help you establish a primary doctor. Return to the emergency department for any new or worsening symptoms Prescriptions: No Action sulfamethoxazole-trimethoprim [Bactrim DS] 800-160 mg tablet 1 tab PO BID Qty: 14 RF: 0 clindamycin HCl 300 mg capsule 300 mg PO TID Qty: 21 RF: 0 doxycycline hyclate 100 mg tablet 100 mg PO BID Qty: 20 RF: 0
[2021-03-08] MEDS: IBUPROFEN 400 MG TABLET 800 MG PO (19:12)
[2021-03-08] MEDS: ONDANSETRON 4 MG ODT PREPACK 1 BOTTLE MISC (19:12)
== END 2021-03-08 19:45 | disposition home or self-care (01) ==
PROVIDERS: Emergency Provider Emergency Medicine
DX: R42 Dizziness and giddiness (principal); R11.0 Nausea; R07.9 Chest pain, unspecified
CPT/HCPCS: 80048; 85025; 93005; 99283; 99284